=== PATIENT | male | born 1980 | race African-American/Black ===

== ENCOUNTER 2018-07-09 15:44 | Emergency (ER) | payer MEDICAID ==
[~2018-07-09] VITALS: Ht 175.3 cm; Wt 79.8 kg
[2018-07-09 16:40] VITALS: Ht 175.3 cm; Wt 79.8 kg
[2018-07-09 21:02] VITALS: BP 111/68
== END 2018-07-09 21:02 | disposition home or self-care (01) ==
LOC: ED 15:44
DX: T18.8XXA Foreign body in other parts of alimentary tract, initial encounter (principal); W22.8XXA Striking against or struck by other objects, initial encounter; Y93.89 Activity, other specified; Y92.89 Other specified places as the place of occurrence of the external cause; Y99.8 Other external cause status